=== PATIENT | female | born 1995 | race Caucasian/White ===

== ENCOUNTER 2018-08-16 12:52 | Emergency (ER) | payer OTHER ==
[2018-08-16 13:40] VITALS: BP 136/72
--- NOTE | 2018-08-21 11:39 | UC ---
Respiratory Complaint HPI - HPI Summary HPI Summary: COUGH,CHEST CONGESTION. GREEN PHLEGM FOR 4 DAYS. COUGH IS GETTING WORSE. FATIUGE. CHEST HURTS WHEN SHE COUGHS. DENIES SOB OR WHEEZING, NO CHILLS OR FEVER. - History of Current Complaint Chief Complaint: UCRespiratory Stated Complaint: COUGH Time Seen by Provider: 08/16/18 14:19 Hx Obtained From: Patient Hx Last Menstrual Period: 08/08/18 ?: No Onset/Duration: Sudden Onset, Lasting Days Timing: Constant Severity Initially: Moderate Severity Currently: Mild Pain Intensity: 0 Pain Scale Used: 0-10 Numeric Aggravating Factors: Deep Breaths, Recumbent Position Alleviating Factors: Upright Position Associated Signs And Symptoms: Positive: Wheezing, URI - Allergies/Home Medications Allergies/Adverse Reactions: Allergies Allergy/AdvReac Type Severity Reaction Status Date / Time No Known Allergies Allergy Verified 08/16/18 13:31 Home Medications: Home Medications Oral Contraceptive 1 tab PO DAILY 08/16/18 [History] Sertraline* [Zoloft*] 100 mg PO DAILY 08/16/18 [History Confirmed 08/16/18] PMH/Surg Hx/FS Hx/Imm Hx Previously Healthy: Yes - Surgical History Surgical History: Yes Surgery Procedure, Year, and Place: TONSILLECTOMY. WISDOM TEETH EXTRACTIONS - Family History Known Family History: Negative: Cardiac Disease, Hypertension - Social History Alcohol Use: Rare Substance Use Type: None Smoking Status (MU): Never Smoked Tobacco Review of Systems All Other Systems Reviewed And Are Negative: Yes Constitutional: Positive: Fatigue Skin: Positive: Negative Eyes: Positive: Negative ENT: Positive: Negative Respiratory: Positive: Shortness Of Breath, Cough Cardiovascular: Positive: Negative Gastrointestinal: Positive: Negative Genitourinary: Positive: Negative Motor: Positive: Negative Neurovascular: Positive: Negative Musculoskeletal: Positive: Negative Neurological: Positive: Negative Psychological: Positive: Negative Is Patient Immunocompromised?: No Physical Exam Triage Information Reviewed: Yes Appearance: No Pain Distress, Well-Nourished, Ill-Appearing Vital Signs: Initial Vital Signs Temp 99.6 F 08/16/18 13:33 Pulse 88 08/16/18 13:33 Resp 20 08/16/18 13:33 BP 136/72 08/16/18 13:33 Pulse Ox 98 08/16/18 13:33 Vital Signs Reviewed: Yes Eye Exam: Normal ENT: Positive: Pharyngeal erythema, TMs normal Dental Exam: Normal Neck exam: Normal Neck: Positive: Supple, Nontender Respiratory: Positive: Wheezing, Inspiration Cardiovascular Exam: Normal Abdominal Exam: Normal Musculoskeletal Exam: Normal Neurological Exam: Normal Psychological Exam: Normal Skin Exam: Normal UC Diagnostic Evaluation - Laboratory O2 Sat by Pulse Oximetry: 98 Respiratory Course/Dx - Course Course Of Treatment: hx obtained, exam performed ,meds reviewed treated for bronchospasm - Differential Dx/Diagnosis Differential Diagnosis/HQI/PQRI: Asthma, Bronchitis, Influenza, Lower Resp Infection Provider Diagnoses: , bronchospasm, URI Discharge - Sign-Out/Discharge Documenting (check all that apply): Patient Departure All imaging exams completed and their final reports reviewed: No Studies - Discharge Plan Condition: Stable Disposition: HOME Prescriptions: Albuterol HFA INHALER* [Ventolin HFA Inhaler*] 2 puff INH Q4H PRN #1 mdi PRN Reason: Cough predniSONE [Prednisone 20 MG TAB] 40 mg PO DAILY #14 tablet Patient Education Materials: Bronchospasm (ED) Referrals: No Primary Care Phys,NOPCP [Primary Care Provider] - Additional Instructions: 1. take the medication as prescribed. 2. Increase fluid intake, plenty of clear fluids 3. Get plenty of rest. 4. I recommend cold care tea from [employer] !!!!! 5. use the medication as prescribed. - Billing Disposition and Condition Condition: STABLE Disposition: Home
== END 2018-08-16 14:34 | disposition home or self-care (01) ==
LOC: UCCORT 12:52
DX: J06.9 Acute upper respiratory infection, unspecified (principal); J98.01 Acute bronchospasm
CPT/HCPCS: 99202; G0463

== ENCOUNTER 2019-01-05 21:12 | Emergency (ER) | payer OTHER ==
[2019-01-05 21:40] VITALS: BP 144/92
--- NOTE | 2019-01-05 21:50 | ED ---
Back Pain - HPI Summary HPI Summary: 23 yr old female with the complaint of low back pain. Onset of pain was this morning when she was at the sink in the bathroom. No exacerbating cause that she can think of. Her pain has gotten worse and is now 9/10. It is worse with movement. It radiates into her bilateral lateral thighs. She denies bowel or bladder incontinence. She denies fever, chills. Denies trauma or falls. She has no other complaints. - History of Current Complaint Chief Complaint: UCBackPain Stated Complaint: BACK PAIN Time Seen by Provider: 01/05/19 21:39 Hx Last Menstrual Period: 01/02/19 Pain Intensity: 9 - Allergies/Home Medications Allergies/Adverse Reactions: Allergies Allergy/AdvReac Type Severity Reaction Status Date / Time No Known Allergies Allergy Verified 01/05/19 21:41 Home Medications: Home Medications Ibuprofen TAB* [Motrin TAB* 800 MG] 800 mg PO ONCE 01/05/19 [History Confirmed 01/05/19] PMH/Surg Hx/FS Hx/Imm Hx - Surgical History Surgery Procedure, Year, and Place: TONSILLECTOMY. WISDOM TEETH EXTRACTIONS Infectious Disease History: No Infectious Disease History: Denies: Traveled Outside the [place] in Last 30 Days - Family History Known Family History: Negative: Cardiac Disease, Hypertension - Social History Alcohol Use: Rare Substance Use Type: Reports: None Smoking Status (MU): Never Smoked Tobacco Review of Systems Constitutional: Negative Positive: Other - back pain All Other Systems Reviewed And Are Negative: Yes Physical Exam Triage Information Reviewed: Yes Vital Signs On Initial Exam: Initial Vitals Temp Pulse Resp BP Pulse Ox 96.8 F 97 18 144/92 100 01/05/19 21:37 01/05/19 21:37 01/05/19 21:37 01/05/19 21:37 01/05/19 21:37 Vital Signs Reviewed: Yes Appearance: Positive: Well-Appearing, No Pain Distress Skin: Positive: Warm, Skin Color Reflects Adequate Perfusion Head/Face: Positive: Normal Head/Face Inspection Eyes: Positive: Normal, EOMI ENT: Positive: Normal ENT inspection Neck: Positive: Nontender Respiratory/Lung Sounds: Positive: Clear to Auscultation, Breath Sounds Present Cardiovascular: Positive: RRR. Negative: Murmur Abdomen Description: Positive: Nontender. Negative: Distended Musculoskeletal: Positive: Other - CTLS spine no midline tenderness. Neurological: Positive: Sensory/Motor Intact, Alert, Oriented to Person Place, Time, CN Intact II-III, Speech Normal Diagnostics - Vital Signs Vital Signs Temp Pulse Resp BP Pulse Ox 01/05/19 21:37 96.8 F 97 18 144/92 100 - Laboratory Lab Statement: Any lab studies that have been ordered have been reviewed, and results considered in the medical decision making process. Back Pain Course/Dx - Course Course Of Treatment: 23 yr old with severe low back pain that is with bilateral radiation into her legs. She has been sent to the ER for further eval and work up this evening.She declined ambulance trasport and states she is driving over. - Diagnoses Provider Diagnoses: Hypertension, Back pain Discharge - Sign-Out/Discharge Documenting (check all that apply): Patient Departure All imaging exams completed and their final reports reviewed: No Studies - Discharge Plan Condition: Good Disposition: HOME-RECOMMEND TO ED Patient Education Materials: Hypertension (ED), Back Pain (ED) Referrals: No Primary Care Phys,NOPCP [Primary Care Provider] - [facility] [Outside] Additional Instructions: You need to go to the ER for further evaluation of your back pain and the pain going into your thighs. Do not delay. You have declined an ambulance. - Billing Disposition and Condition Condition: GOOD Disposition: Home-Recommend to ED
== END 2019-01-05 22:00 | disposition home health service (06) ==
LOC: UCCORT 21:12
DX: M54.5 Low back pain (principal); I10 Essential (primary) hypertension; M79.605 Pain in left leg; M79.604 Pain in right leg
CPT/HCPCS: 99212; G0463

== ENCOUNTER 2019-08-16 12:06 | Emergency (ER) | payer OTHER ==
[2019-08-16 13:01] VITALS: BP 123/65
--- NOTE | 2019-08-16 13:09 | UC ---
Ear Complaint HPI - HPI Summary HPI Summary: Cold symptoms for a few days--now has developed sever left ear pain - History of Current Complaint Chief Complaint: UCEar Stated Complaint: EAR PAIN Time Seen by Provider: 08/16/19 13:05 Hx Obtained From: Patient Hx Last Menstrual Period: 08/07/19 ?: No Onset/Duration: Sudden Onset Pain Intensity: 6 Pain Scale Used: 0-10 Numeric Aggravating Factors: Nothing Alleviating Factors: Nothing Associated Signs/Symptoms: Positive: URI Symptoms - Allergies/Home Medications Allergies/Adverse Reactions: Allergies Allergy/AdvReac Type Severity Reaction Status Date / Time No Known Allergies Allergy Verified 08/16/19 12:54 PMH/Surg Hx/FS Hx/Imm Hx Previously Healthy: No Psychological History: Depression - Surgical History Surgical History: Yes Surgery Procedure, Year, and Place: TONSILLECTOMY. WISDOM TEETH EXTRACTIONS - Family History Known Family History: Negative: Cardiac Disease, Hypertension - Social History Occupation: Student Lives: Dormitory/Roommates Alcohol Use: Occasionally Substance Use Type: None Smoking Status (MU): Never Smoked Tobacco Review of Systems All Other Systems Reviewed And Are Negative: Yes Constitutional: Positive: Negative Skin: Positive: Negative ENT: Positive: Ear Ache - left, Nasal Discharge, Sinus Congestion Respiratory: Positive: Cough Cardiovascular: Positive: Negative Gastrointestinal: Positive: Negative Genitourinary: Positive: Negative Motor: Positive: Negative Neurovascular: Positive: Negative Musculoskeletal: Positive: Negative Neurological: Positive: Negative Psychological: Positive: Negative Is Patient Immunocompromised?: No Physical Exam Triage Information Reviewed: Yes Appearance: Well-Appearing, Well-Nourished, Pain Distress Vital Signs: Initial Vital Signs Temp 97.7 F 08/16/19 12:55 Pulse 84 08/16/19 12:55 Resp 16 08/16/19 12:55 BP 123/65 08/16/19 12:55 Pulse Ox 99 08/16/19 12:55 Vital Signs Reviewed: Yes Eye Exam: Normal Eyes: Positive: Conjunctiva Clear ENT Exam: Normal ENT: Positive: Normal ENT inspection, Hearing grossly normal, Pharynx normal, Nasal congestion, TMs normal - right, Uvula midline, Other - left ear canal rad and swollen. Negative: Trismus, Muffled voice, Hoarse voice, Dental tenderness , Sinus tenderness Dental Exam: Normal Neck exam: Normal Neck: Positive: Supple, Nontender Respiratory Exam: Normal Respiratory: Positive: Chest non-tender, Lungs clear, Normal breath sounds, No respiratory distress, No accessory muscle use Cardiovascular Exam: Normal Cardiovascular: Positive: RRR, No Murmur, Pulses Normal, Brisk Capillary Refill Musculoskeletal Exam: Normal Musculoskeletal: Positive: Strength Intact, ROM Intact, No Edema Neurological Exam: Normal Neurological: Positive: Alert, Muscle Tone Normal Psychological Exam: Normal Skin Exam: Normal Ear Complaint Course/Dx - Course Course Of Treatment: ofloxin drops left ear, otc medications for viral uri sx, follow at [facility] prn - Differential Dx/Diagnosis Provider Diagnosis: Left otitis externa, Viral URI Discharge ED - Sign-Out/Discharge Documenting (check all that apply): Patient Departure All imaging exams completed and their final reports reviewed: No Studies - Discharge Plan Condition: Stable Disposition: HOME Prescriptions: Ciproflox/Dexameth OTIC.SUSP* [Ciprodex OTIC.SUSP*] 4 drop LEFT EAR BID 10 Days #1 btl Ofloxacin 0.3% (Ear Drop)* [Floxin 0.3% OTIC.FLAQUITA (Ear Drop)] 5 drop LEFT EAR BID 10 Days #1 btl Patient Education Materials: Ibuprofen (By mouth), Otitis Externa (ED), Heat Pack Application (ED) Referrals: [facility] [Outside] - If Needed - Billing Disposition and Condition Condition: STABLE Disposition: Home
== END 2019-08-16 13:34 | disposition home or self-care (01) ==
LOC: UCCORT 12:06
DX: H60.92 Unspecified otitis externa, left ear (principal); J06.9 Acute upper respiratory infection, unspecified
CPT/HCPCS: 99212; G0463